=== PATIENT | female | born 1940 | race Caucasian/White ===

== ENCOUNTER 2017-02-03 19:43 | Inpatient (IN) | payer MEDICARE, OTHER ==
[~2017-02-03] VITALS: Ht 152.4 cm; Wt 52.9 kg
[~2017-02-03 19:43] MED LIST: ACET1TAB40 PO; ACYC800T57 PO; AMIT10TA6 PO; ASPRIN; BLOOD PRESSURE; CALC-600 PO; CYCL-319 PO; IBUP200C PO; IBUP400T22 PO; OMEP20CA16 PO
[2017-02-03] MEDS ORDERED: SOD CHLORIDE 0.9% 500 ML IV STA (22:09)
--- NOTE | 2017-02-03 22:49 | RADRPT ---
PROCEDURE: XR Chest. CLINICAL INDICATION: Syncope. TECHNIQUE: Single frontal view. COMPARISON: None. FINDINGS: The lungs are clear. The heart size is normal. There is calcification in the aorta consistent with atherosclerosis. There is no pleural effusion. There is no pneumothorax. IMPRESSION: 1. Atherosclerosis. 2. Otherwise normal chest radiograph. RPTAT: QQ .David Tierney MD, MD Date Time Electronically viewed and signed by .David Tierney MD, MD on 02/03/2017 22:49 .R/
[2017-02-03 23:02] LABS: BASOPHIL # 0.1 10^3/ul (0.0-0.1); BASOPHILS % 0.7 % (0.0-2.0); EOSINOPHILS # 0.3 10^3/ul (0.0-0.5); EOSINOPHILS % 3.9 % (0.0-7.0); HEMATOCRIT 33.7 % (37.0-47.0); HEMOGLOBIN 11.2 g/dl (12.0-16.0); LYMPHOCYTES # 1.7 10^3/ul (0.8-2.9); LYMPHOCYTES % 24.8 % (15.0-51.0); MEAN CORPUSCULAR HEMOGLOBIN 29.6 pg (29.0-33.0); MEAN CORPUSCULAR HGB CONC 33.2 g/dl (32.0-37.0); MEAN CORPUSCULAR VOLUME 88.9 fl (82.0-101.0); MEAN PLATELET VOLUME 9.3 fl (7.4-10.4); MONOCYTE # 0.6 10^3/ul (0.3-0.9); NEUTROPHIL # 4.2 10^3/ul (1.6-7.5); NEUTROPHILS % 61.3 % (39.0-77.0); PLATELET COUNT 235 10^3/UL (140-415); RED BLOOD COUNT 3.79 10^6/ul (4.20-5.40); RED CELL DISTRIBUTION WIDTH 13.7 % (11.5-14.5); WHITE BLOOD COUNT 6.9 10^3/ul (4.8-10.8)
[2017-02-03 23:20] LABS: INR 1.07; PROTIME 13.9 Sec (12.2-14.2); PT RATIO 1.1
[2017-02-03 23:21] VITALS: TEMP 98.1
[2017-02-03 23:27] LABS: ANION GAP 12 (8-16); BLOOD UREA NITROGEN 26 mg/dl (7-20); CALCIUM 8.8 mg/dl (8.4-10.2); CARBON DIOXIDE 29 mmol/L (21-31); CHLORIDE 101 mmol/L (97-110); CREATININE 1.06 mg/dl (0.44-1.00); GLUCOSE 88 mg/dl (70-220); POTASSIUM 3.8 mmol/L (3.5-5.1); SODIUM 138 mmol/L (135-144)
[2017-02-03 23:37] LABS: TROPONIN-I < 0.012 ng/ml (0.00-0.12)
--- NOTE | 2017-02-03 23:37 | RADRPT ---
PROCEDURE: CT BRAIN WITHOUT CONTRAST CLINICAL INDICATION: 76-year-old female with syncope. TECHNIQUE: The study was performed utilizing [employer] VCT 64-slice CT scanner. Direct axial sections were obtained from the foramen magnum to the vertex without the use of intravenous contrast material. Sagittal and coronal reformations were obtained. Sagittal and coronal reformations were obtained. One or more the following dose reduction techniques were utilized: automated exposure cont rol, adjustment of the mA and/or kV according to patient's size or use of iterative reconstruction t echnique. The images were viewed on a PACS workstation. CTD/vol = 44.8 mGy; Total Exam DLP = 720.2 mGy-cm. COMPARISON: None. FINDINGS: There is moderate degree of diffuse cortical and central atrophy with compensatory ventricular enlar gement. There is no evidence for mass effect or midline shift. There are periventricular areas of decreased density consistent with microangiopathic ischemic changes. There is no evidence for acute intra or extra-axial blood. Calcifications are seen within the intracranial carotid arteries bilate rally. The bony calvarium is intact. The partially visualized paranasal sinuses and mastoid air cell s are without significant abnormal soft tissue. IMPRESSION: 1. Moderate diffuse atrophy. 2. Microangiopathic ischemic changes. 3. Vascular calcifications. .Maxime Woods MD, MD Date Time Electronically viewed and signed by .Maxime Woods MD, MD on 02/03/2017 23:36 .M/
[2017-02-04] VITALS (13 sets, daily range): BP systolic 100–146; BP diastolic 57–75; PULSE 40–63; RESP 17–18; Ht 152.4 cm; Wt 52.9 kg
[2017-02-04] MEDS ORDERED: ISOS60TA PO (00:36)
[2017-02-04] MEDS ORDERED: OXCA150T43 PO (00:36)
[2017-02-04] MEDS ORDERED: QUET25TA33 PO (00:36)
[2017-02-04] MEDS ORDERED: ASPI-535 PO (00:36)
[2017-02-04] MEDS ORDERED: OMEP20CA16 PO (00:36)
[2017-02-04] MEDS ORDERED: FURO20TA3 PO (00:36)
[2017-02-04] MEDS ORDERED: DICL100G37 TOP (00:36)
[2017-02-04] MEDS ORDERED: DICL75TA2 PO (00:36)
[2017-02-04] MEDS ORDERED: DONE5TAB7 PO (00:36)
[2017-02-04] MEDS ORDERED: ONDANSETRON 4 MG INJ IV STA (01:27)
[2017-02-04] MEDS ORDERED: ACETAMINOPHEN 325 MG TAB PO PRN (04:00)
[2017-02-04] MEDS ORDERED: NITROGLYCERIN (SL) 0.4 MG TAB SL PRN (04:00)
[2017-02-04] MEDS ORDERED: NACL 0.9% 3 ML SYG IV SCH (04:00)
[2017-02-04] MEDS ORDERED: ONDANSETRON 4 MG INJ IV PRN (04:00)
[2017-02-04] MEDS ORDERED: morphine 2 MG INJ IV PRN (04:00)
[2017-02-04] MEDS ORDERED: ALBUTEROL/IPRATROPIUM (NEB) 3 ML AMP HHN PRN (04:00)
--- NOTE | 2017-02-04 05:30 | ERA ---
ER Documentation Chief Complaint Date/Time DATE: 02/04/17 TIME: 05:29 Chief Complaint fall d/t dizziness; pt hit her head per grandchildren HPI 36-year-old female seen on a syncopal episode and fell and hit her head. It impinges that she felt dizzy prior to seeing arising. No nausea no vomiting no chills. No focal neurological complaints. No chest pain. Dizziness is since resolved. No other current complaints. Patient has baseline dementia. History is per family at the bedside. ROS All systems reviewed and are negative except as per history of present illness. Medications Home Meds Reported Medications Quetiapine Fumarate* (Quetiapine Fumarate*) 25 Mg Tablet, 25 MG PO BID, TAB TAKE 1/2 TABLET BY MOUTH TWICE DAILY 02/04/17 Omeprazole* (Omeprazole*) 20 Mg Capsule.dr, 20 MG PO DAILY, #30 CAP 02/04/17 Donepezil* (Donepezil*) 5 Mg Tablet, 5 MG PO DAILY, #30 TAB 02/04/17 Furosemide* (Furosemide*) 20 Mg Tablet, 20 MG PO DAILY, #60 TAB 02/04/17 Isosorbide Mononitrate* (Isosorbide Mononitrate*) 60 Mg Tab.er.24h, 60 MG PO DAILY, TAB 02/04/17 Oxcarbazepine* (Oxcarbazepine*) 150 Mg Tablet, 150 MG PO QHS, TAB 02/04/17 Diclofenac Sodium* (Diclofenac Sodium*) 75 Mg Tablet.dr, 75 MG PO BID, #60 TAB 02/04/17 Diclofenac Sodium* (Voltaren* Gel) 1% -100 Gm Gel, 4 GM TOP QID, #1 TUB 02/04/17 Aspirin Ec (Aspir 81) 81 Mg Tablet.dr, 81 MG PO DAILY, #30 TAB 02/04/17 Calcium (Calcium) 500 Mg Tablet, 500 MG PO TID 12/12/10 Ibuprofen* (Ibuprofen*) 200 Mg Capsule, 200 MG PO 12/12/10 Discontinued Reported Medications [Blood Pressure ] No Conflict Check 12/12/10 Amitriptyline Hcl* (Amitriptyline Hcl*) 10 Mg Tablet, 10 MG PO HS 12/12/10 Omeprazole* (Omeprazole*) 20 Mg Capsule.dr, 20 MG PO DAILY 12/12/10 [Asprin] No Conflict Check, 81 12/12/10 Discontinued Scripts Ibuprofen* (Motrin*) 400 Mg Tab, 400 MG PO Q6H Y for PAIN, #16 TAB Prov:MARTA MORRIS MD 04/27/16 Acetaminophen with Codeine (Acetaminophen-Cod #3 Tablet) 1 Each Tablet, 1 TAB PO Q6H Y for PAIN, #16 TAB Prov:MARTA MORRIS MD 04/27/16 Acyclovir* (Zovirax*) 800 Mg Tablet, 800 MG PO 5 TIMES DAILY for 7 Days, TAB Prov:MARTA MORRIS MD 04/27/16 Ibuprofen* (Ibuprofen*) 400 Mg Tablet, 400 MG PO Q6H Y for PAIN, #20 TAB Prov:AISHA CURIEL NP 04/12/15 Cyclobenzaprine Hcl* (Cyclobenzaprine Hcl*) 10 Mg Tablet, 50 MG PO TID, #15 TAB Prov:AISHA CURIEL NP 04/12/15 Allergies Allergies: Coded Allergies: No Known Allergy (Unverified , 02/04/17) PMhx/Soc History of Surgery: No Hx Neurological Disorder: Yes ([facility] 2013) Hx Respiratory Disorders: No Hx Cardiac Disorders: Yes Hx Psychiatric Problems: Yes (depression) Hx Alcohol Use: Yes (in the past) Hx Substance Use: No Hx Tobacco Use: No Smoking Status: Never smoker Physical Exam Vitals Vital Signs Date Time Temp Pulse Resp B/P Pulse Ox O2 Delivery O2 Flow Rate FiO2 02/03/17 23:21 98.1 80 19 13/61 100 02/03/17 20:07 98.4 56 23 121/62 97 Physical Exam Const: [] Head: Atraumatic Eyes: Normal Conjunctiva ENT: Normal External Ears, Nose and Mouth. Neck: Full range of motion..~ No meningismus. Resp: Clear to auscultation bilaterally Cardio: Regular rate and rhythm, no murmurs Abd: Soft, non tender, non distended. Normal bowel sounds Skin: No petechiae or rashes Back: No midline or flank tenderness Ext: No cyanosis, or edema Neur: Awake and alert Psych: Normal Mood and Affect Result Diagram: 02/03/17 2221 02/03/17 2221 Results 24 hrs Laboratory Tests Test 02/03/17 22:21 White Blood Count 6.910^3/ul Red Blood Count 3.7910^6/ul Hemoglobin 11.2g/dl Hematocrit 33.7% Mean Corpuscular Volume 88.9fl Mean Corpuscular Hemoglobin 29.6pg Mean Corpuscular Hemoglobin Concent 33.2g/dl Red Cell Distribution Width 13.7% Platelet Count 86118^3/UL Mean Platelet Volume 9.3fl Neutrophils % 61.3% Lymphocytes % 24.8% Monocytes % 9.0% Eosinophils % 3.9% Basophils % 0.7% Nucleated Red Blood Cells % 0.0/100WBC Neutrophils # 4.210^3/ul Lymphocytes # 1.710^3/ul Monocytes # 0.610^3/ul Eosinophils # 0.310^3/ul Basophils # 0.110^3/ul Nucleated Red Blood Cells # 0.010^3/ul Prothrombin Time 13.9Sec Prothrombin Time Ratio 1.1 INR International Normalized Ratio 1.07 Activated Partial Thromboplast Time 30.0Sec Sodium Level 138mmol/L Potassium Level 3.8mmol/L Chloride Level 101mmol/L Carbon Dioxide Level 29mmol/L Anion Gap 12 Blood Urea Nitrogen 26mg/dl Creatinine 1.06mg/dl Glucose Level 88mg/dl Calcium Level 8.8mg/dl Troponin I < 0.012ng/ml Current Medications Medications (Trade) Dose Ordered Sig/Marti Route PRN Reason Start Time Stop Time Status Last Admin Dose Admin Sodium Chloride (NS) 500 ml @ 500 mls/hr Q1H STAT IV 02/03/17 22:09 02/03/17 23:08 DC 02/03/17 22:44 Procedures/MDM EKG: Rate/Rhythm: [Normal Sinus Rhythm] QRS, ST, T-waves: [No changes consistent w/ acute ischemia] Impression: [No evidence of ischemia or arrhythmia] Chest X-ray 1V Interpreted by me: Soft Tissue: No acute abnormalities Bones: No acute abnormalities Mediastinum/Cardiac Silhouette/Lungs: [No acute abnormalities] Patient's syncopal symptoms are unstable at this time and require inpatient workup. No evidence of PE or dissection at this time but occult ischemia or fatal dysrhythmia cannot be ruled out. Departure Diagnosis: Primary Impression: Syncope Qualified Code: R55 - Syncope, unspecified syncope type Condition: Stable DOMONIQUE HUGHES Feb 04, 2017 05:30
--- NOTE | 2017-02-04 06:45 | HP ---
Date/Time of Note Date/Time of Note DATE: 02/04/17 TIME: 06:36 Assessment/Plan VTE Prophylaxis VTE Prophylaxis Intervention: heparin Assessment/Plan Assessment/Plan ASSESSMENT 76-year-old female with a history of dementia and depression here with his syncope status post ground-level fall PLAN Continue telemetry monitoring 2D echo and bilateral carotid Doppler ultrasound Trend troponin Physical therapy and speech/swallow evaluation Continue home medications adjustment as needed Of note, head CT was negative for any acute findings. Will obtain additional brain imaging as needed HPI/ROS Admit Date/Time Admit Date/Time Feb 04, 2017 at 01:04 Hx of Present Illness This is a 76-year-old female with a history of dementia and depression who was brought to the ER for loss of consciousness and after she fell down. Patient is not able to provide clear history, but according to reports from the ER, daughter stated that patient fell down and likely hitting her head. She had a brief loss of consciousness. When she presented to the ER, head CT was negative for any acute findings. Labs shows hemoglobin of 11.2 and a creatinine of 1.06 otherwise within acceptable range. First troponin is negative and EKG was no ST-T wave abnormalities. PMH/Family/Social Social History Smoking Status: Never smoker Exam/Review of Systems Vital Signs Vitals Vital Signs Date Time Temp Pulse Resp B/P Pulse Ox O2 Delivery O2 Flow Rate FiO2 02/04/17 05:45 40 02/04/17 04:17 98.0 18 118/60 95 Exam Constitutional: other (No acute distress. Not fully oriented) Head: atraumatic, normocephalic Respiratory: clear to auscultation, normal air movement Cardiovascular: nl pulses, regular rate and rhythm Gastrointestinal: non-tender, soft Extremities: normal pulses Labs Result Diagram: 02/03/171 02/03/17 2221 Medications Medications Current Medications Ondansetron HCl (Zofran Inj) 4 mg Q6H PRN IV NAUSEA AND/OR VOMITING; Start 02/11 at 04:00 Nitroglycerin (Nitroglycerin (Sl Tab) 0.4 Mg) 1 tab Q5M PRN SL CHEST PAIN; Start 02/04/17 at 04:00 Acetaminophen (Tylenol Tab) 650 mg Q6H PRN PO PAIN LEVEL 1-3 OR FEVER; Start 02/04/17 at 04:00 Morphine Sulfate (morphine) 2 mg Q4H PRN IV PAIN LEVEL 7-10; Start 02/04/17 at 04:00 Famotidine (Pepcid) 20 mg Q12 PO ; Start 02/04/17 at 09:00 Heparin Sodium (Porcine) (Heparin (5000 Units/0.5 ml)) 5,000 unit Q12 SC ; Start 02/04/17 at 09:00 Aspirin (Halfprin) 81 mg DAILY PO ; Start 02/04/17 at 09:00 Donepezil HCl (Aricept) 5 mg DAILY PO ; Start 02/04/17 at 09:00 Furosemide (Lasix) 20 mg DAILY PO ; Start 02/04/17 at 09:00 Isosorbide Mononitrate (Imdur) 60 mg DAILY PO ; Start 02/04/17 at 09:00 Oxcarbazepine (Trileptal) 150 mg QHS PO ; Start 02/04/17 at 21:00 Quetiapine Fumarate (Seroquel) 25 mg BID PO ; Start 02/04/17 at 09:00 Calcium Carbonate (Oyster Shell Calcium) 500 gm TID PO ; Start 02/04/17 at 09: 00 DOMONIQUE MAZA MD Feb 04, 2017 06:44
[2017-02-04 08:27] LABS: BASOPHILS % 0.6 % (0.0-2.0); EOSINOPHILS # 0.2 10^3/ul (0.0-0.5); EOSINOPHILS % 3.2 % (0.0-7.0); HEMATOCRIT 35.9 % (37.0-47.0); HEMOGLOBIN 11.5 g/dl (12.0-16.0); LYMPHOCYTES # 1.3 10^3/ul (0.8-2.9); LYMPHOCYTES % 20.8 % (15.0-51.0); MEAN CORPUSCULAR HEMOGLOBIN 28.3 pg (29.0-33.0); MEAN CORPUSCULAR VOLUME 88.2 fl (82.0-101.0); MEAN PLATELET VOLUME 9.5 fl (7.4-10.4); MONOCYTE # 0.4 10^3/ul (0.3-0.9); NEUTROPHIL # 4.3 10^3/ul (1.6-7.5); NEUTROPHILS % 68.1 % (39.0-77.0); PLATELET COUNT 241 10^3/UL (140-415); RED BLOOD COUNT 4.07 10^6/ul (4.20-5.40); RED CELL DISTRIBUTION WIDTH 13.8 % (11.5-14.5); WHITE BLOOD COUNT 6.3 10^3/ul (4.8-10.8)
[2017-02-04 08:45] LABS: CREATINE KINASE 125 IU/L (23-200)
[2017-02-04 08:49] LABS: ALBUMIN 3.7 g/dl (3.3-4.9); ALBUMIN/GLOBULIN RATIO 1.15; BILIRUBIN,INDIRECT 0.4 mg/dl (0-1.1); BILIRUBIN,TOTAL 0.4 mg/dl (0.2-1.3); CHOL/HDL RATIO 3.3 RATIO; CREATININE 0.77 mg/dl (0.44-1.00); POTASSIUM 4.3 mmol/L (3.5-5.1); TOTAL PROTEIN 6.9 g/dl (6.1-8.1)
[2017-02-04] MEDS: ASPIRIN (EC) 81 MG TAB PO SCH (08:51)
[2017-02-04] MEDS: DONEPEZIL 5 MG TAB PO SCH (08:51)
[2017-02-04] MEDS: ISOSORBIDE MONONITRATE(SR)60 MG TAB PO SCH (08:52)
[2017-02-04] MEDS: QUETIAPINE 25 MG TAB PO SCH ×2 (08:52→22:15)
[2017-02-04] MEDS: FAMOTIDINE 20 MG TAB PO SCH ×2 (08:52→22:14)
[2017-02-04] MEDS: FUROSEMIDE 20 MG TAB PO SCH (08:53)
[2017-02-04] MEDS: HEPARIN 5,000 UNIT/0.5 ML VIAL SC SCH ×2 (08:56→22:15)
[2017-02-04 08:59] LABS: CK-MB 1.58 ng/ml (0.0-2.4)
[2017-02-04] MEDS ORDERED: CALCIUM CARBONATE 1.25 GM TAB PO SCH (09:00)
[2017-02-04 09:07] LABS: TROPONIN-I < 0.012 ng/ml (0.00-0.12)
--- NOTE | 2017-02-04 09:25 | RADRPT ---
PROCEDURE: US Carotids. CLINICAL INDICATION: Syncope TECHNIQUE: Multiple sonographic of the carotid bifurcation region and vertebral arteries were obta ined utilizing villa scale, duplex and color-flow imaging. The images were reviewed on a PACS worksta tion. COMPARISON: None FINDINGS: Evaluation of the right carotid bifurcation region reveals no significant calcific atherosclerotic d isease. Evaluation of the left carotid bifurcation region reveals no significant calcific atherosclerotic di sease. There is antegrade flow within the vertebral arteries bilaterally. RIGHT CAROTID MEASUREMENTS: Common Carotid [id number] (cm/sec) Internal Carotid Artery - hoixiaxm05 (cm/sec) Internal Carotid Artery - mid45 (cm/sec) Internal Carotid Artery - qoobie37 (cm/sec) Internal Carotid/Common Carotid0.9 LEFT CAROTID MEASUREMENTS: Common Carotid Artery 63 (cm/sec) Internal Carotid Artery - proximal 45 (cm/sec) Internal Carotid Artery - mid 46 (cm/sec) Internal Carotid Artery - distal 41 (cm/sec) Internal Carotid/Common Carotid 0.8 IMPRESSION: 1. No evidence of a significant stenosis of the right internal carotid artery. 2. No evidence of a significant stenosis of the left internal carotid artery. 3. Normal antegrade flow in the vertebral arteries bilaterally. Measurement of carotid stenosis is based on peak systolic and diastolic velocity parameters that cor relate to the residual internal carotid diameter with [place] Symptomatic Carotid Endarterect abhijit Trial (NASCET) based stenosis levels. Normal ( < 50% )- ICA peak systolic velocity < 125 cm/sec, ICA / CCA ratio < 2.0 Moderate stenosis ( 50 - 69% )- ICA peak systolic velocity 125 - 230 cm/sec, ICA / CCA ratio 2.0 - 4.0 Severe stenosis ( >70% )- ICA peak systolic velocity > 230 cm/sec, ICA / CCA ratio > 4.0 RPTAT:AAJJ Physician Rony Date Time Electronically viewed and signed by Physician Rony on 02/04/2017 09:25 /
[2017-02-04 09:38] LABS: THYROID STIMULATING HORMONE 3.68 MIU/L (0.465-4.680)
[2017-02-04 09:49] LABS: CREATINE KINASE 147 IU/L (23-200)
[2017-02-04 10:02] LABS: CK-MB 1.89 ng/ml (0.0-2.4)
[2017-02-04 10:03] LABS: TROPONIN-I < 0.012 ng/ml (0.00-0.12)
[2017-02-04] MEDS: CALCIUM CARBONATE 1.25 GM TAB PO SCH ×2 (13:10→22:14)
--- NOTE | 2017-02-04 18:05 | RADRPT ---
PROCEDURE: XR Bilateral Hips. CLINICAL INDICATION: Bilateral hip pain. TECHNIQUE: Four views. Frontal and lateral right hip. Frontal and lateral left hip. COMPARISON: No prior studies are available for comparison. FINDINGS: There is no fracture or dislocation. The soft tissues are normal. Articular surfaces are intact. There is no lytic or blastic lesion. There is no radiopaque foreign body. IMPRESSION: 1. Unremarkable images of both hips. RPTAT: QQ .David Tierney MD, MD Date Time Electronically viewed and signed by .David Tierney MD, on 02/04/2017 18:04 .R/
[2017-02-04] MEDS ORDERED: OXCARBAZEPINE 150 MG TAB PO SCH (21:00)
[2017-02-05] VITALS (9 sets, daily range): BP systolic 99–140; BP diastolic 58–85; PULSE 56–73; RESP 16–18
[2017-02-05 07:41] LABS: BASOPHIL # 0.1 10^3/ul (0.0-0.1); BASOPHILS % 0.8 % (0.0-2.0); EOSINOPHILS # 0.2 10^3/ul (0.0-0.5); EOSINOPHILS % 3.4 % (0.0-7.0); HEMATOCRIT 37.4 % (37.0-47.0); HEMOGLOBIN 12.1 g/dl (12.0-16.0); LYMPHOCYTES # 2.1 10^3/ul (0.8-2.9); LYMPHOCYTES % 31.3 % (15.0-51.0); MEAN CORPUSCULAR HEMOGLOBIN 28.4 pg (29.0-33.0); MEAN CORPUSCULAR HGB CONC 32.4 g/dl (32.0-37.0); MEAN CORPUSCULAR VOLUME 87.8 fl (82.0-101.0); MEAN PLATELET VOLUME 9.3 fl (7.4-10.4); MONOCYTE # 0.4 10^3/ul (0.3-0.9); MONOCYTES % 6.6 % (0.0-11.0); NEUTROPHIL # 3.8 10^3/ul (1.6-7.5); NEUTROPHILS % 57.4 % (39.0-77.0); PLATELET COUNT 255 10^3/UL (140-415); RED BLOOD COUNT 4.26 10^6/ul (4.20-5.40); RED CELL DISTRIBUTION WIDTH 13.7 % (11.5-14.5); WHITE BLOOD COUNT 6.6 10^3/ul (4.8-10.8)
[2017-02-05 08:01] LABS: CALCIUM 9.1 mg/dl (8.4-10.2); CREATININE 0.91 mg/dl (0.44-1.00); PHOSPHORUS 3.9 mg/dl (2.5-4.9); POTASSIUM 3.9 mmol/L (3.5-5.1)
[2017-02-05] MEDS: FAMOTIDINE 20 MG TAB PO SCH (08:43)
[2017-02-05] MEDS: QUETIAPINE 25 MG TAB PO SCH (08:43)
[2017-02-05] MEDS: DONEPEZIL 5 MG TAB PO SCH (08:43)
[2017-02-05] MEDS: ASPIRIN (EC) 81 MG TAB PO SCH (08:43)
[2017-02-05] MEDS: CALCIUM CARBONATE 1.25 GM TAB PO SCH ×2 (08:44→13:33)
[2017-02-05] MEDS: ISOSORBIDE MONONITRATE(SR)60 MG TAB PO SCH (08:44)
[2017-02-05] MEDS: FUROSEMIDE 20 MG TAB PO SCH (08:44)
[2017-02-05] MEDS: HEPARIN 5,000 UNIT/0.5 ML VIAL SC SCH (08:47)
--- NOTE | 2017-02-05 14:41 | PDOCDIS ---
Discharge Instructions CONDITION Patient Condition: Stable HOME CARE INSTRUCTIONS: Special Diet: Regular Diet LENA REID Feb 05, 2017 14:41
--- NOTE | 2017-02-05 17:35 | DS ---
DATE OF ADMISSION: 02/04/2017 DATE OF DISCHARGE: 02/05/2017 HOSPITAL COURSE: This is a 76-year-old female originally admitted on 02/04/2017 and being discharged to acute rehab facility on 02/05/2017. The patient came in with a prior history of dementia and depression, who had a syncopal event and status post ground level fall. The patient was admitted. Lab work appeared to be stable. She had a bilateral hip x-ray performed that showed that was unremarkable. She had a head CT as well. History of moderate diffuse atrophy and microangiopathic ischemic changes, but no acute findings. She also had carotid Dopplers that showed no evidence of any significant stenosis of either the right or left internal carotid arteries. Over the course of her hospital stay, she was able to ambulate well. She was seen by speech therapy and physical therapy during the hospital stay. She did well with their services. She was tolerating p.o. diet. Echocardiogram was performed, the results still pending by the time of this discharge, and the patient will be discharged to rehab facility today in improved condition. She will be sent with Tylenol 650 q.6 p.r.n., DuoNeb q.2 hours p.r.n., aspirin 81 mg daily, calcium carbonate 1.25 g t.i.d., Aricept 5 mg daily, Pepcid 20 mg q.12 hours, Lasix 20 mg daily, heparin 5000 units q.12 hours subcu, Imdur 60 mg daily, morphine 2 mg IV q.4 hours p.r.n., nitroglycerin 0.4 mg sublingual every 5 minutes p.r.n., Zofran 4 mg IV q.6 p.r.n., Trileptal 150 mg nightly, Seroquel 25 mg b.i.d. Of note, troponin was negative and EKG showed no ST changes or T-wave inversions. Continue follow up with regular doctor in clinic in the next 1 to 2 weeks. FINAL DIAGNOSES: 1. Syncope with ground level fall likely secondary to combination of patient's depression and dementia and mild dehydration. 2. History of depression. 3. History of dementia. Time to discharge the patient was 40 minutes. Dictated By: Robbie Santamaria MD /melo/armida /Document#: [id number]
--- NOTE | 2017-02-05 20:20 | RADRPT ---
Echocardiogram Report Patient Name: MARISSA ALVARADO Gender: Female Date: 1940 Study Date: 04-Feb-2017 Rn Embedded: ARTI Snell[facility] Location: [address] [place] [address]. Physician: DOMONIQUE MAZA Quality: Adequate Procedures: Transthoracic echocardiogram with complete 2D, M-Mode, and doppler examination. Indications: Syncope. 2D/M Mode Doppler Measurement Value Normal Ranges Measurement Value Normal Ranges LVIDd 2D 4.0 3.5 - 5.6 cm BHAKTI Vmax 1.6 cm2 LVIDs 2D 2.1 2.1 - 4.1 cm AV Peak Charles 1.6 m/sec FS 2D 47.6 % AV Peak PG 10.0 mmHg LVPWd 2D 0.8 0.6 - 1.1 cm LVOT Peak Charles 1.0 m/sec IVSd 2D 0.8 0.6 - 1.1 cm LVOT Peak PG 4.0 mmHg IVS/LVPW 2D 1.0 MV E Peak Charles 0.7 m/sec AoR Diam 2D 2.2 2.0 - 3.7 cm MV A Peak Charles 1.1 m/sec LA/Ao 2D 1 0 - 1 MV E/A 0.7 EDV 2D 63.5 cm3 MV Decel Time 320 msec ESV 2D 9.1 cm3 MV E/A 0.7 LA Dimen 2D 2.1 2.3 - 4.0 cm TR Peak Charles 2.8 m/sec LVOT Diam 1.8 cm TR Peak PG 32.0 mmHg LVOT Area 2.5 cm2 RVSP 35.0 mmHg Findings Left Ventricle: Normal left ventricular systolic function. Normal left ventricular cavity size. Ejection fraction is visually estimated at 6065 %. Tissue Doppler/Mitral Doppler indices are consistent with impaired relaxation (Stage I diastolic dysfunction). Right Ventricle: Normal right ventricular size. Normal right ventricular systolic function. Left Atrium: The left atrium is normal in size. Right Atrium: The right atrium is normal in size. Mitral Valve: Mitral valve leaflets appear mildly thickened. Mild mitral annular calcification. Mild mitral valve regurgitation. Aortic Valve: Normal appearance of the aortic valve. No significant aortic stenosis or insufficiency. Tricuspid Valve: Tricuspid valve not well visualized. Estimated peak PA systolic pressure 35 mmHg. There is mild tricuspid regurgitation. Pulmonic Valve: Pulmonic valve not well visualized. Pericardium: Normal pericardium with no significant pericardial effusion. Aorta: Normal aortic root. IVC: Normal size and normal respiratory collapse consistent with normal right atrial pressure. Conclusions 1.Normal left ventricular systolic function. Normal left ventricular cavity size. Ejection fraction is visually estimated at 60-65 %. Tissue Doppler/Mitral Doppler indices are consistent with impaired relaxation (Stage I diastolic dysfunction). 2.Mitral valve leaflets appear mildly thickened. Mild mitral annular calcification. Mild mitral valve regurgitation. 3.Tricuspid valve not well visualized. Estimated peak PA systolic pressure 35 mmHg. There is mild tricuspid regurgitation. Electronically Signed By: Minh Fernandez 05-Feb-2017 20:19:30 -0700 Patient Name: MARISSA ALVARADO Study Date: 04-Feb-[id number]
== END 2017-02-05 17:18 | DRG 884 ==
LOC: E/R 19:43 → TEL 02-04 01:04
PROVIDERS: ADMIT Internal Medicine; ATTEND Internal Medicine
DX: F03.90 Unspecified dementia, unspecified severity, without behavioral disturbance, psychotic disturbance, mood disturbance, and anxiety (principal); E86.0 Dehydration; F32.9 Major depressive disorder, single episode, unspecified; Z91.81 History of falling
CPT/HCPCS: 70450; 71010; 73520; 80048; 80053; 80061; 82550; 82553; 83036; 83735; 84100; 84443; 84484; 85025; 85610; 85730; 92610; 93005; 93306; 93880; 97161; J1644; J2405; J7040

== ENCOUNTER 2018-07-29 18:37 | Emergency (ER) | payer MEDICARE, OTHER ==
[~2018-07-29] VITALS: Ht 149.9 cm; Wt 54.9 kg
[~2018-07-29 18:37] MED LIST changes: -ACET1TAB40 PO; -ACYC800T57 PO; -AMIT10TA6 PO; +ASPI-535 PO; -ASPRIN; -BLOOD PRESSURE; -CYCL-319 PO; +DICL100G37 TOP; +DICL75TA2 PO; +DONE5TAB7 PO; +FURO20TA3 PO; +IBUP-1982 PO; -IBUP200C PO; -IBUP400T22 PO; +ISOS60TA PO; +OXCA150T43 PO; +QUET25TA33 PO
[2018-07-29 19:27] VITALS: Ht 149.9 cm; Wt 54.9 kg
--- NOTE | 2018-07-30 04:00 | ERD ---
ER Documentation Chief Complaint Chief Complaint fell today and hit posterior head, no KO HPI This is a 78-year-old female comes in today with complaints of hitting her head patient had a mechanical fall. No loss of conscious. Denies any vomiting or chills. No other current complaints ROS All systems reviewed and are negative except as per history of present illness. Medications Home Meds Reported Medications Quetiapine Fumarate* (Quetiapine Fumarate*) 25 Mg Tablet, 25 MG PO BID, TAB TAKE 1/2 TABLET BY MOUTH TWICE DAILY 02/04/17 Omeprazole* (Omeprazole*) 20 Mg Capsule.dr, 20 MG PO DAILY, #30 CAP 02/04/17 Donepezil* (Donepezil*) 5 Mg Tablet, 5 MG PO DAILY, #30 TAB 02/04/17 Furosemide* (Furosemide*) 20 Mg Tablet, 20 MG PO DAILY, #60 TAB 02/04/17 Isosorbide Mononitrate* (Isosorbide Mononitrate*) 60 Mg Tab.er.24h, 60 MG PO DAILY, TAB 02/04/17 Oxcarbazepine* (Oxcarbazepine*) 150 Mg Tablet, 150 MG PO QHS, TAB 02/04/17 Diclofenac Sodium* (Diclofenac Sodium*) 75 Mg Tablet.dr, 75 MG PO BID, #60 TAB 02/04/17 Diclofenac Sodium* (Voltaren* Gel) 1% -100 Gm Gel, 4 GM TOP QID, #1 TUB 02/04/17 Aspirin Ec (Aspir 81) 81 Mg Tablet.dr, 81 MG PO DAILY, #30 TAB 02/04/17 Calcium (Calcium) 500 Mg Tablet, 500 MG PO TID 12/12/10 Ibuprofen* (Ibuprofen*) 200 Mg Capsule, 200 MG PO 12/12/10 Allergies Allergies: Coded Allergies: No Known Allergy (Unverified , 02/04/17) PMhx/Soc History of Surgery: No Anesthesia Reaction: No Hx Neurological Disorder: Yes (Dementia 2013) Hx Respiratory Disorders: No Hx Cardiac Disorders: Yes Hx Psychiatric Problems: Yes (depression) Hx Miscellaneous Medical Probl: Yes Hx Alcohol Use: Yes (in the past) Hx Substance Use: No Hx Tobacco Use: No Smoking Status: Never smoker Physical Exam Vitals Vital Signs Date Temp Pulse Resp B/P (MAP) Pulse Ox O2 O2 Flow FiO2 Time Delivery Rate 07/30/18 58 17 128/77 100 Room Air 01:54 (94) 07/29/18 98.2 72 17 141/74 100 19:27 (96) Physical Exam Const: No acute distress Head: Atraumatic Eyes: Normal Conjunctiva ENT: Normal External Ears, Nose and Mouth. Neck: Full range of motion. No meningismus. Resp: Clear to auscultation bilaterally Cardio: Regular rate and rhythm, no murmurs Abd: Soft, non tender, non distended. Normal bowel sounds Skin: No petechiae or rashes Back: No midline or flank tenderness Ext: No cyanosis, or edema Neur: Awake and alert Psych: Normal Mood and Affect Procedures/MDM X-ray Pelvis 1V Interpreted by me: Bones: [No fracture] Joints: [No dislocation] Foreign body: [None] Chest X-ray 1V Interpreted by me: Soft Tissue: No acute abnormalities Bones: No acute abnormalities Mediastinum/Cardiac Silhouette/Lungs: [No acute abnormalities] Medical decision making: This is a 70-year-old female suffered a mechanical fall and bumped her head. She had no loss conscious is nonfocal neurologic. At this point is been greater than 6 hours since she fell. She is neurologically at baseline. She is stable for trial of outpatient management. Family at bedside made aware of care plan and diagnosis. Departure Diagnosis: Primary Impression: Fall Encounter type: initial encounter Qualified Codes: W19.XXXA - Unspecified fall, initial encounter Condition: Stable Patient Instructions: HEAD INJURY, No Wake-Up (Adult) DOMONIQUE HUGHES Jul 30, 2018 04:00
[2018-07-30 04:43] VITALS: BP 133/81; PULSE 56; RESP 18
== END 2018-07-30 05:00 | disposition home or self-care (01) ==
LOC: E/R 18:37
DX: S09.90XA Unspecified injury of head, initial encounter (principal); R40.2142 Coma scale, eyes open, spontaneous, at arrival to emergency department; R40.2362 Coma scale, best motor response, obeys commands, at arrival to emergency department; R40.2242 Coma scale, best verbal response, confused conversation, at arrival to emergency department; R51 Headache; W18.30XA Fall on same level, unspecified, initial encounter; Y92.9 Unspecified place or not applicable; Z79.82 Long term (current) use of aspirin
CPT/HCPCS: 70450; 71045; 72125; 72170